=== PATIENT | male | born 1955 | race African-American/Black ===

== ENCOUNTER 2018-12-26 21:30 | Emergency (ER) | payer SELFPAY ==
[~2018-12-26] VITALS: Ht 182.9 cm; Wt 112.0 kg
[2018-12-26 22:11] VITALS: BP 132/84
== END 2018-12-27 01:40 | disposition left against medical advice (07) ==
LOC: ER 21:35
DX: R42 Dizziness and giddiness (principal); Z53.21 Procedure and treatment not carried out due to patient leaving prior to being seen by health care provider
CPT/HCPCS: 70450; 71045

== ENCOUNTER 2018-12-27 14:21 | Emergency (ER) | payer SELFPAY ==
[~2018-12-27] VITALS: Ht 182.9 cm; Wt 112.0 kg
[2018-12-27 15:07] LABS: Basophils # (auto) 0.1 uL; Eosinophils # (auto) 0.1 uL; Eosinophils % (auto) 1.4 % (0.0-7.0); Hematocrit 39.8 % (41.0-53.0); Hemoglobin 12.9 g/dL (13.5-17.5); Lymphocytes # (auto) 3.2 uL; Lymphocytes % (auto) 35.3 % (10.0-50.0); Mean Corpuscular Hemoglobin 27.2 pg (28.0-32.0); Mean Corpuscular Hgb Conc. 32.3 g/dL (32.0-36.0); Mean Corpuscular Volume 84.2 fL (80.0-100.0); Monocytes # (auto) 0.7 uL; Monocytes % (auto) 7.9 % (0.0-12.0); Neutrophils % (auto) 54.4 % (37.0-80.0); Platelet Count (auto) 275 10^3/uL (140-450); Red Blood Cells 4.73 10^6/uL (4.5-5.90); Red Cell Distribution Width 14.4 % (11.8-14.3); White Blood Cell 9.2 10^3/uL (4.4-10.8)
[2018-12-27 15:26] LABS: INR 0.97 (0.9-1.15); Partial Thromboplastin Time 28.5 sec (23.64-32.05)
[2018-12-27 15:41] LABS: Alanine Aminotransferase 29 U/L (16-61); Alkaline Phosphatase 61 U/L (45-117); Anion Gap 6 (5-15); Aspartate Aminotransferase 27 U/L (15-37); BUN/Creatinine Ratio 10.8; Blood Urea Nitrogen 13 mg/dL (7-18); Carbon Dioxide 25 mmol/L (21-32); Chloride 109 mmol/L (98-107); GFR African American 78 mL/min; GFR Non-African American 65 mL/min; Glucose 121 mg/dL (74-106); Potassium 4.1 mmol/L (3.5-5.1); Sodium 140 mmol/L (136-145)
[2018-12-27 15:42] LABS: Albumin 3.8 g/dL (3.4-5.0); Bilirubin, Total 0.6 mg/dL (0.2-1.0); Calcium 8.8 mg/dL (8.5-10.1); Total Protein 8.6 g/dL (6.4-8.2)
[2018-12-27 16:52] VITALS: BP 128/68
== END 2018-12-27 16:53 | disposition home or self-care (01) ==
LOC: ER 14:25
DX: R00.2 Palpitations (principal); E78.5 Hyperlipidemia, unspecified; I10 Essential (primary) hypertension
CPT/HCPCS: 36415; 80053; 84484; 85025; 85610; 85730